=== PATIENT | male | born 1980 | race Caucasian/White ===

== ENCOUNTER 2017-01-18 18:38 | Emergency (ER) | payer OTHER ==
[~2017-01-18] VITALS: Ht 193 cm; Wt 100.0 kg
--- NOTE | 2017-01-18 18:43 | NUR ---
Family brought in with EMS and sent to waiting room. [facility] patrolman relays to this nurse that [place] had restraining order against patient and that they can not be together. Once patient is dismissed he will be arrested for violating restraining order. Relayed to Dr. Cardoso.
[2017-01-18 19:26] VITALS: BP 134/85
== END 2017-01-18 19:19 | disposition home or self-care (01) ==
LOC: ED 18:43
DX: Z04.1 Encounter for examination and observation following transport accident (principal); V49.40XA Driver injured in collision with unspecified motor vehicles in traffic accident, initial encounter; Y92.411 Interstate highway as the place of occurrence of the external cause
CPT/HCPCS: 99281; 99282

== ENCOUNTER → 2017-01-18 | Outpatient (REF) | LOC: EMS 20:40 | DX: Z02.83 Encounter for blood-alcohol and blood-drug test (principal) ==